=== PATIENT | male | born 1960 | race Caucasian/White ===

== ENCOUNTER 2024-03-07 09:01 | Emergency (ER) | payer BC, MEDICAID, SELFPAY ==
[2024-03-07 09:54] VITALS: BP 142/85; PULSE 77; RESP 17; TEMP 36.4; O2SAT 100; BMI 24.3
--- NOTE | 2024-03-07 10:12 | XR_ITS ---
WS: [id number] XR shoulder RT min 2V* [id number] REASON FOR EXAM: nontraumatic shoulder pain FINDINGS: No fracture or focal bone lesion. Moderate narrowing of the acromioclavicular joint with moderate subchondral sclerosis and osteophytos is. The glenohumeral joint space is not optimally demonstrated. There may be mild narrowing of the joint space. No significant subchondral bone changes noted. No soft tissue abnormality. 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 No acute abnormality.
--- NOTE | 2024-03-07 10:24 | W.ED.EXTPRO ---
HPI - Extremity Problem General: Chief complaint: Extremity Injury, Upper Stated complaint: right shoulder pain Time Seen by Provider: 03/07/24 10:09 History of Present Illness: 63-year-old man who takes no medications presents to the emergency room with right shoulder pain. He says it comes and goes. It is an aching pain that goes into his scapula and deltoid. He has tried taking ibuprofen and this did not help. He thought maybe he slept on it wrong but it is continued for 3 days now. No chest pain. No shortness of breath. No fevers. No cough. No altered mental status. No focal motor deficits. He is neurovascularly intact. No point tenderness on exam. Review of Systems Narrative: Constitutional symptoms: Negative except as documented in HPI. Skin symptoms: Negative except as documented in HPI. Eye symptoms: Negative except as documented in HPI. ENMT symptoms: Negative except as documented in HPI. Respiratory symptoms: Negative except as documented in HPI. Cardiovascular symptoms: Negative except as documented in HPI. Gastrointestinal symptoms: Negative except as documented in HPI. Genitourinary symptoms: Negative except as documented in HPI. Musculoskeletal symptoms: Negative except as documented in HPI. Neurologic symptoms: Negative except as documented in HPI. Psychiatric symptoms: Negative except as documented in HPI. Endocrine symptoms: Negative except as documented in HPI. Physical Exam Narrative: EXAM NARRATIVE: General: Alert, no acute distress. Skin: Warm, dry. Head: Normocephalic, atraumatic. Neck: Supple, trachea midline. Eye: Extraocular movements are intact. Ears, nose, mouth and throat: mucosa moist. Cardiovascular: Regular, Normal peripheral perfusion. Respiratory: Lungs are clear to auscultation, respirations are non-labored, breath sounds are equal, Symmetrical chest wall expansion. Gastrointestinal: Soft, Nontender, Non distended, Normal bowel sounds. Musculoskeletal: Normal ROM, no deformity. No redness. No point tenderness. Neurovascularly intact. Currently the pain is minimal he says. He says it is worse at night most the time. Neurological: Alert and oriented, No focal neurological deficit observed. Psychiatric: Cooperative, appropriate mood & affect. Course Vital Signs: Vital signs: Vital Signs Temperature 97.5 F L 03/07/24 09:54 Pulse Rate 77 03/07/24 09:54 Respiratory Rate 17 03/07/24 09:54 Blood Pressure 142/85 03/07/24 09:54 Pulse Oximetry 100 03/07/24 09:54 Oxygen Delivery Me thod Room Air 03/07/24 09:54 MDM - Extremity (Nontraumatic) Medical Decision Making Medical decision making: Differential diagnosis including but not limited to and based on the above HPI, review of systems and physical exam: Likely musculoskeletal pain. CRP ordered and a CBC to evaluate for inflammation. A troponin and EKG were ordered to rule out atypical type chest pain. Orders placed to evaluate differential diagnosis based on the above differential, HPI and physical exam Lab Review: Laboratory results were reviewed and interpreted by myself the emergency room physician. Lab work is unremarkable. White count is 4.3. Hemoglobin is 15. BUN and creatinine are 14 and 0.7. Troponin is normal. X-ray of the right shoulder: Arthritic changes. No fractures. No dislocation. This was reviewed and interpreted by myself the emergency room physician EKG: Time 1038 rate 73 normal sinus rhythm, No ST-T changes, no ectopy, normal CA & QRS intervals, This was reviewed and interpreted by myself the ER physician at 1044. I reviewed the patient's medical record. Reexamination: Assessment and plan: Shoulder pain - Discharged home - Discussed plan with patient. Answered any questions. - Evaluation and treatment of this problem were appropriate in the emergency setting. 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 No acute abnormality. Laboratory Results WBC 4.37 10^3/uL (3.29-11.43) 03/07/24 10:49 RBC 5.18 10^6/uL (3.85-5.65) 03/07/24 10:49 Hgb 15.40 g/dL (11.27-16.99) 03/07/24 10:49 Hct 45.8 % (37-53) 03/07/24 10:49 MCV 88.4 fl (82-101) 03/07/24 10:49 MCH 29.7 pg (27-33) 03/07/24 10:49 MCHC 33.6 g/dL (30-55) 03/07/24 10:49 RDW 12.8 % (12.1-15.1) 03/07/24 10:49 Plt Count 239 10^3/cmm (157-399) 03/07/24 10:49 MPV 9.1 fL (7.4-10.4) 03/07/24 10:49 Neut % (Auto) 37.6 % 03/07/24 10:49 Lymph % (Auto) 48.7 % 03/07/24 10:49 Waller % (Auto) 10.3 % 03/07/24 10:49 Eos % (Auto) 2.3 % 03/07/24 10:49 Baso % (Auto) 0.9 % 03/07/24 10:49 Neut # (Auto) 1.64 10^3/uL (1.8-7.7) L 03/07/24 10:49 Lymph # (Auto) 2.1 10^3/uL (0.8-4.8) 03/07/24 10:49 Waller # (Auto) 0.5 10^3/uL (0.2-0.9) 03/07/24 10:49 Eos # (Auto) 0.1 10^3/uL (0.0-0.8) 03/07/24 10:49 Baso # (Auto) 0.0 10^3/uL (0.0-0.1) 03/07/24 10:49 Nucleated RBC % (auto) 0 % 03/07/24 10:49 Nucleated RBCs # 0.0 /100WBC 03/07/24 10:49 Sodium 135 mmol/L (136-145) L 03/07/24 10:49 Potassium 4.7 mmol/L (3.5-5.1) 03/07/24 10:49 Chloride 101 mmol/L (98-107) 03/07/24 10:49 Carbon Dioxide 24 mmol/L (22-29) 03/07/24 10:49 Anion Gap 14.7 (5-19) 03/07/24 10:49 BUN 14 mg/dL (8-23) 03/07/24 10:49 Creatinine 0.7 mg/dL (0.7-1.2) 03/07/24 10:49 GFR Calculation 114.6 mL/min (90-130) 03/07/24 10:49 Glucose 144 mg/dL (65-115) H 03/07/24 10:49 Calculated Osmolality 283 mOsm/kg (285-295) L 03/07/24 10:49 Calcium 8.7 mg/dL (8.5-10.5) 03/07/24 10:49 C-Reactive Protein 3.0 mg/L (0.0-4.9) 03/07/24 10:49 All radiology interpretation(s) finalized by discharge Discharge Plan Discharge Patient Disposition: Home Clinical Impression: Arthritis pain of shoulder Condition: Stable Prescriptions: New dexamethasone 6 mg tablet 6 mg PO DAILY 5 Days Qty: 5 0RF diclofenac sodium 50 mg tablet,delayed release (DR/EC) 50 mg PO Q12H Qty: 20 0RF No Action ibuprofen 200 mg Tablet 400 mg PO Q6H PRN (Reason: Pain) Discharge Orders: Discharge ED (Routine); Ordered 03/07/24 Ordered By: Judi Alberto Discharge Diet: Usual diet Discharge Activity: Increase activity as tolerated Patient Instructions: Arthritis (ED), Opioid Safety, Pain Management Coding Level of Care Code ED [employer] Shipping Clerk for Karen Burnett
--- NOTE | 2024-03-07 10:38 | ECG_ITS ---
[facility] Test Date: 2024-03-07 Pat Name: Juliano Green Department: Room: Gender: Male [employer] Operator: : 1960 Requested By: Judi Maloney Order Number: [id number] Cloud MD: Angel Roman M.D. Measurements Intervals [place] Rate: 73 P: 57 VA: 180 QRS: 74 QRSD: 85 T: 77 QT: 379 QTc: 419 Interpretive Statements SINUS RHYTHM VOLTAGE CRITERIA FOR LVH [MEETS CRITERIA IN ONE OF: R(aVL), S(V1), R(V5), R(V5/V6)+S(V1)] Compared to ECG 03/07/2019 16:28:52 No significant changes Electronically Signed On 03-07-2024 16:50:04 CDT by Angel Roman M.D. [email or web address]
[2024-03-07 10:55] LABS: Basophils % 0.9 %; Eosinophils # 0.1 10^3/uL (0.0-0.8); Eosinophils % 2.3 %; Hematocrit 45.8 % (37-53); Lymphocytes # 2.1 10^3/uL (0.8-4.8); Lymphocytes % 48.7 %; Mean Corpuscular HGB Conc 33.6 g/dL (30-55); Mean Corpuscular Hemoglobin 29.7 pg (27-33); Mean Corpuscular Volume 88.4 fl (82-101); Mean Platelet Volume 9.1 fL (7.4-10.4); Monocytes # 0.5 10^3/uL (0.2-0.9); Monocytes % 10.3 %; Neutrophils # 1.64 10^3/uL (1.8-7.7); Neutrophils % 37.6 %; Nucleated Red Blood Cells % 0 %; Platelet Count 239 10^3/cmm (157-399); Red Blood Count 5.18 10^6/uL (3.85-5.65); Red Cell Distribution Width 12.8 % (12.1-15.1); White Blood Count 4.37 10^3/uL (3.29-11.43)
[2024-03-07 11:12] LABS: Anion Gap 14.7 (5-19); Blood Urea Nitrogen 14 mg/dL (8-23); Calcium 8.7 mg/dL (8.5-10.5); Carbon Dioxide 24 mmol/L (22-29); Chloride 101 mmol/L (98-107); Creatinine Clr Calc Pharmacy 109.8319; Glomerular Filtration Rate 114.6 mL/min (90-130); Glucose 144 mg/dL (65-115); Osmolality Calculated 283 mOsm/kg (285-295); Potassium 4.7 mmol/L (3.5-5.1); Sodium 135 mmol/L (136-145)
[2024-03-07 11:48] LABS: Troponin(5th) Baseline 8 ng/L (0-15)
== END 2024-03-07 11:36 | disposition home or self-care (01) ==
PROVIDERS: Emergency Provider Emergency Medicine
DX: M19.011 Primary osteoarthritis, right shoulder (principal)
CPT/HCPCS: 36415; 73030; 80048; 84484; 85025; 86140; 93005; 99285